=== PATIENT | female | born 1955 | race Caucasian/White ===

== ENCOUNTER → 2022-05-26 | Outpatient (CLI) | payer MEDICARE, OTHER ==
[2022-05-26 10:25] LABS: INR 0.9 (<1.2); Partial Thromboplastin Time 22.7 sec (22.0-30.0)
[2022-05-26 16:21] LABS: HCT 41.1 % (37.2-46.3); HGB 13.6 g/dL (12.0-15.0); MCH 31.9 pg (27.0-32.0); MCHC 33.1 g/dL (32.0-37.0); MCV 96.3 fL (80.0-97.0); Mean Platelet Volume 11.6 fL (9.5-12.2); NRBC Per 100 WBC 0 /100 WBCS (0.0-0.0); Platelet Count 186 X 10*3/uL (140-440); RBC 4.27 X 10*6/uL (4.10-5.20); RDW 13.7 % (11.5-14.5); WBC 6.58 X 10*3/uL (4.50-10.00)
[2022-05-26 16:56] LABS: African American GFR (CKD) 110.9 (60.0-200.0); Albumin 4.3 g/dL (3.8-4.9); Albumin/Globulin Ratio 1.54 (1.60-3.17); BUN/Creat Ratio 26.17 Ratio (12.00-20.00); Blood Urea Nitrogen 15.7 mg/dL (9.0-27.0); Calcium 9.4 mg/dL (8.7-10.3); Globulin 2.8 g/dL (1.6-3.3); Non-African American GFR(CKD) 95.7 (60.0-200.0); Potassium 4.3 mmol/L (3.5-5.5); Total Bilirubin 0.4 mg/dL (0.30-1.20); Total Protein 7.1 g/dL (6.2-8.2)
[2022-05-26 18:27] LABS: Appearance,Urine Clear (Clear); Bilirubin,Urine Negative (Negative); Blood,Urine Negative (Negative); Color,Urine Yellow (Yellow); Ketones,Urine Negative (Negative); Nitrite,Urine Negative (Negative); PH, Urine 7.5 (5.0-8.0); Specific Gravity,Urine 1.006 (1.001-1.030); Urobilinogen,Urine 0.2 (0.2,1.0)
== END | disposition home or self-care (01) ==
LOC: LABWHC1 08:44
PROVIDERS: ATTEND Orthopaedic Surgery
DX: Z01.812 Encounter for preprocedural laboratory examination (principal); M16.11 Unilateral primary osteoarthritis, right hip
CPT/HCPCS: 36415; 80053; 81003; 85027; 85610; 85730; 87070

== ENCOUNTER 2022-06-03 07:02 | Day surgery (SDC) | payer MEDICARE, OTHER ==
[~2022-06-03 07:02] MED LIST: ACETAMINOPHEN TAB 500 MG TAB PO PRN; DEXAMETHASONE SOD PHOSPHATE 4 MG/ML 1 ML VIAL IV ONE; GABAPENTIN 300 MG CAP PO PRN; HYDROmorphone 0.5 MG/0.5 ML SYRINGE IVP PRN; MELOXICAM 7.5 MG TAB PO PRN; ONDANSETRON 4 MG/2 ML VIAL IVP ONE; TRANEXAMIC ACID IN NACL,ISO-OS 1,000 MG in SALINE 1 100ML.BAG IVPB PRN; VANCOMYCIN 1,500 MG in SODIUM CHLORIDE 0.9% 500 ML 500 ML IVPB PRN
[2022-06-03] MEDS: LACTATED RINGERS 1,000 ML IV SCH (07:44)
[2022-06-03] MEDS ORDERED: MIDAZOLAM 2 MG/2 ML VIAL IVP ONE (08:23)
[2022-06-03] MEDS ORDERED: fentaNYL (PF) 50 MCG/ML 2 ML AMP IVP ONE (08:23)
[2022-06-03] MEDS ORDERED: MIDAZOLAM 2 MG/2 ML VIAL ONE (08:55)
[2022-06-03] MEDS ORDERED: PROPOFOL 10 MG/ML 20 ML VIAL IV ONE (08:55)
[2022-06-03] MEDS ORDERED: TRANEXAMIC ACID IN NACL,ISO-OS 1,000 MG/100 ML BAG ONE (08:55)
[2022-06-03] MEDS ORDERED: PHENYLEPHRINE-0.9% NACL SYG 1,000 MCG/10 ML SYRINGE ONE (08:55)
[2022-06-03] MEDS ORDERED: fentaNYL (PF) 50 MCG/ML 2 ML AMP ONE (08:55)
[2022-06-03] MEDS ORDERED: ceFAZolin 1,000 MG VIAL ONE (08:55)
[2022-06-03] MEDS ORDERED: ROPIVACAINE 5 MG/ML 30 ML VIAL ONE (08:55)
[2022-06-03] MEDS ORDERED: DEXAMETHASONE SOD PHOSPHATE 4 MG/ML 1 ML VIAL ONE (08:55)
[2022-06-03] MEDS ORDERED: SODIUM CHLORIDE 0.9% 100 ML BAG ONE (08:55)
[2022-06-03] MEDS ORDERED: SODIUM CHLORIDE 0.9% (PF) 10 ML VIAL ONE (08:55)
[2022-06-03] MEDS ORDERED: SODIUM CHLORIDE 0.9% 100 ML with ceFAZolin 2,000 MG IV ONE ×4 (09:00)
[2022-06-03] MEDS ORDERED: ceFAZolin 1,000 MG in SODIUM CHLORIDE 0.9% 1,000 ML IRRIGATION ONE (09:00)
[2022-06-03] MEDS ORDERED: ROPIVACAINE 5 MG/ML 30 ML VIAL MISCELLANE ONE ×2 (09:04→10:02)
--- NOTE | 2022-06-03 10:14 | P.OP ---
Date of Procedure: 06/03/22 Preoperative Diagnosis: Severe osteoarthritis right hip Postoperative Diagnosis: Severe osteoarthritis right hip Procedure(s) Performed: Right total hip arthroplasty with a direct anterior approach Implants: [employer] Polarstem standard size 5 with a collar [employer] R3, 3 hole hemispherical acetabular shell, 52 mm [employer] Reflection 6.5 mm cancellus screw, 20 mm 2 [employer] R3, XLPE 20 acetabular liner [employer] Oxinium femoral head 36 m, +0 All components were press-fit. The articulation is Oxinium on polyethylene. Anesthesia: spinal Surgeon: Garry Schultz Pharm Tech #1: Stephon Meza Estimated Blood Loss (ml): 200 Pathology: other (Femoral head) Condition: stable Disposition: PACU Indications for Procedure: After failure of conservative treatment we discussed the surgical and nonsurgical treatment options at length. Patient wishes to proceed with a total hip arthroplasty with a direct anterior approach. Complications specific to this procedure were discussed at length, including but not limited to infection, leg length discrepancy, dislocation, nerve injury, and fracture. Covid-19 was also discussed at length with the patient, and they are aware of the current policies and procedures. The patient was given the option of delaying surgery, but they elect to proceed knowing these risks. Patient is aware of all these complications and informed consent was obtained Operative Findings: The operative findings are consistent with severe osteoarthritis of the right hip Description of Procedure: The patient was seen and evaluated in the preoperative area and the consent was reviewed. The operative site was marked with a skin marker. The patient verified the procedure and operative site. A ASHLYN block was placed by anesthesia in the preoperative area. The patient was then brought to the operating room and given preoperative antibiotics intravenously. 1 g of Tranexamic acid was also given intravenously. A spinal anesthetic was administered by the anesthesia department. The patient was then placed on the [place] table with the bony prominences well-padded. The hip area was then prepped with a ChloraPrep solution and draped in the usual sterile fashion. A universal timeout was then performed, which confirmed the patient's name, surgical site, ALLERGIES, and procedure being performed on the consent. Next the incision site was located at 1 cm distal and 4 cm lateral to the anterior superior iliac spine. The skin and subcutaneous tissues were sharply incised. Incision was carefully dissected down to the fascia overlying the tensor fascia edmundo muscle. This fascia was then incised in line with the muscle fibers. Care was taken to stay laterally in order to avoid injuring the lateral femoral cutaneous nerve. Next, using blunt finger dissection, the tensor fascia edmundo muscle was dissected off its investing fascia. The muscle was then carefully retracted laterally with a cobra retractor over the lateral neck of the femur. Next, the circumflex vessels were identified and cauterized using the Aquamantis device. The anterior hip capsule was then exposed. The capsule was then opened and an inverted T fashion. The retractors were then placed intracapsularly. The retractors were maintained intracapsular throughout the procedure. The proximal femur was then visualized. Fluoroscopic x-rays were then taken in order to evaluate the preoperative leg lengths. A small amount of traction was placed on the leg. The femoral neck was then osteotomized at the appropriate level above the lesser trochanter. A small wedge of bone was then removed from the remaining femoral head. Next, using a corkscrew the femoral head was removed from the acetabulum. On gross visual inspection, the femoral head had complete loss of articular cartilage and multiple periarticular osteophytes. The femoral head was then measured. Attention was then turned to the acetabulum. The acetabulum was exposed and any remaining labrum was excised. Sequential reaming of the acetabulum was performed using fluoroscopic guidance until there was a good bed of bleeding cancellus bone. When the appropriate size was reached, a trial was then placed. The position and fit of the trial was checked with fluoroscopy. The trial was then removed. Then, using fluoroscopic guidance, the final implant was impacted at 20 of anteversion and 40 of abduction, and fully seated in the acetabulum. 2 screws were then placed in the acetabulum. Again fluoroscopy was used to check position of the screws. Next, the liner was then impacted, with a 20 elevated liner located in the anterior superior quadrant. Component locking was confirmed. Attention was then directed to the femur. With the aid of the [place] table, the femur was externally rotated to approximately 130, extended, and adducted under the opposite leg. A side hook was then placed under the proximal femur, and the side hook elevator was used to elevate the proximal femur while releasing the capsule. Retractors were then placed. A capsular release was performed, as well as a release of the conjoined tendon, which afforded excellent visualization of the proximal femur. Next, a box osteotome was used to lateralize the proximal femur. A retail project merchandiser was then used to locate the femoral canal. Sequential broaching was then performed with appropriate size which afforded excellent fixation in the proximal femur. A trial was then placed with appropriate head and neck, and the hip was gently reduced with the aid of the [place] table. Fluoroscopy was then used to check position of the components, as well as to evaluate the leg lengths and offset. The leg lengths and offset were measured as closely as possible to ensure stability of the hip. The hip was then gently dislocated and the trials were then removed. Final implants were then impacted and the hip was again reduced. Final fluoroscopic x-rays confirmed that the components were in anatomic position. The leg lengths and offset were measured and were found to coincide with the trial measurements. The hip was also taken through range of motion, and found to be stable. The hip was then copiously irrigated with antibiotic solution with pulsatile lavage. The hip was then irrigated with Irrisept solution. The soft tissues were then injected with a ropivacaine solution. A second dose of 1 g of Tranexamic acid was also given intravenously. The fascia was then closed with 2-0 strata fix suture. The subcutaneous tissue was closed with 3-0 Vicryl. The subcuticular tissue was closed with 3-0 strata fix suture. The skin was then closed with Exofin skin glue. After the glue and dried, and Optifoam silver impregnated dressing was applied. The patient was then transferred to the recovery room in stable condition. The print shop assistant WILLIE Neil was required due to the complexity of surgery, and the need for skilled surgical services manager for positioning, draping, exposure, retraction, and closure of the wound.
[2022-06-03] MEDS ORDERED: hydrOXYzine pamoate 25 MG CAP PO PRN (11:01)
[2022-06-03] MEDS ORDERED: TEMAZEPAM 15 MG CAP PO PRN (11:01)
[2022-06-03] MEDS ORDERED: NALOXONE 0.4 MG/ML 1 ML VIAL IV PRN (11:01)
[2022-06-03] MEDS ORDERED: ONDANSETRON 4 MG/2 ML VIAL IVP PRN (11:01)
[2022-06-03] MEDS ORDERED: MAGNESIUM HYDROXIDE 2,400 MG/10 ML CUP PO PRN (11:01)
[2022-06-03] MEDS ORDERED: HYDROmorphone 0.5 MG/0.5 ML SYRINGE IVP PRN ×3 (11:01)
--- NOTE | 2022-06-03 11:12 | XR ---
EXAMINATION TYPE: XR Hip Limited RT DATE OF EXAM: 06/03/2022 CLINICAL HISTORY: Postoperative evaluation TECHNIQUE: Single portable view of the right hip was submitted. FINDINGS: Noted are changes of total hip arthroplasty with femoral and acetabular components appearin g well seated. Alignment is anatomic. Postsurgical soft tissue changes are evident. IMPRESSION: Satisfactory postoperative alignment
--- NOTE | 2022-06-03 11:37 | XR ---
EXAMINATION TYPE: XR Hip Limited RT, FL guidance operating room DATE OF EXAM: 06/03/2022 CLINICAL HISTORY: Postoperative evaluation TECHNIQUE: Single portable view of the right hip was submitted. FINDINGS: Noted are changes of total hip arthroplasty with femoral and acetabular components appearin g well seated. Alignment is anatomic. Postsurgical soft tissue changes are evident. IMPRESSION: Satisfactory postoperative alignment
[2022-06-03] MEDS ORDERED: MULTIVITAMINS, THERA 1 EACH TAB PO SCH (12:00)
--- NOTE | 2022-06-03 12:42 | P.ANPRN ---
Procedure Note - Anesthesia - Nerve Block Performed Right Yasir Single Time Out Performed: Yes (0822) Date of Procedure: 06/03/22 Location of Patient: PreOp Indication: Acute Post-Operative Pain, Dx/Pain Location (rt hip), Requested by Surgeon Specifically requested for management of pain by DrDenys: Garry Schultz Sedation Type: Sedate with meaningful contact maintained Position: Supine Catheter: None Needle Types: Pajunk Needle Gauge: 21 Ultrasound used to visualize needle placement: Yes Ultrasound used to observe medication spread: Yes Injectate: 0.5% Ropivacaine (see comment for volume) (20 cc + 10 cc of saine + 4mg of decadron) Blood Aspirated: No Pain Paresthesia on Injection Noted: No Resistance on Injection: Normal Image Stored and Saved: Yes Events: Uneventful and Well Tolerated
[2022-06-03] MEDS ORDERED: SODIUM CHLORIDE 0.9% 1,000 ML IV ONE (14:03)
[2022-06-03] MEDS: HYDROcodone/APAP 7.5-325MG 1 EACH TAB PO PRN ×2 (15:36→21:28)
[2022-06-03] MEDS: SODIUM CHLORIDE 0.9% 1,000 ML IV SCH (16:52)
[2022-06-03 19:47] VITALS: RESP 16
[2022-06-03] MEDS ORDERED: VANCOMYCIN 1,500 MG in SODIUM CHLORIDE 0.9% 500 ML 500 ML IVPB ONE (20:00)
[2022-06-03] MEDS ORDERED: SENNOSIDES-DOCUSATE SODIUM 1 EACH TAB PO SCH (21:00)
[2022-06-03] MEDS: ASPIRIN 325 MG TAB PO SCH (21:28)
--- NOTE | 2022-06-04 00:04 | CONS ---
CONSULTATION REASON FOR CONSULTATION: Advice regarding DJD and other medical issues requested by Orthopedic Surgery. HISTORY OF PRESENT ILLNESS: This is a 67-year-old woman with a past medical history of DJD, underwent right total hip joint arthroplasty. There is no history of any fever, rigors, or chills at this time. The patient has some minimal bradycardia, blood pressure is well maintained. PAST MEDICAL HISTORY: DJD, previous history of smoking. Rest of the history and rest of the chart are noted. MEDICATIONS: Home medications are turmeric root, and rest of the medication and doses are noted. ALLERGIES: None. FAMILY HISTORY: No history of heart disease in the family. SOCIAL HISTORY: Previous history of smoking. REVIEW OF SYSTEMS: A 14-point review of systems is negative except as mentioned earlier. PHYSICAL EXAMINATION: VITAL SIGNS: Pulse is 55, blood pressure ntd, respirations 16. HEENT: Conjunctivae normal. NECK: No jugular venous distention. CARDIOVASCULAR: S1, S2 muffled. RESPIRATIONS: Diminished at the bases. No rhonchi, no crackles. ABDOMEN: Soft, obese, nontender. LEGS: Status post right hip arthroplasty. NERVOUS SYSTEM: No focal deficits. SKIN: No ulcer, rash, bleeding. JOINTS: No active deforming arthropathy. LABORATORY DATA: The preop labs are noted. ASSESSMENT: 1. Status post right total hip joint arthroplasty. 2. Bradycardia. 3. Degenerative joint disease. 4. History of nicotine dependence. 5. BMI 35.3. RECOMMENDATIONS: This is a 67-year-old woman who presented with multiple medical issues. At this time, I recommend to continue resume the home medications. DVT prophylaxis. Incentive spirometry. I would also recommend EKG. Monitor the heart rate. Further recommendations to follow. MMODL / IJN: [id number] / DENNIS
[2022-06-04] MEDS: SODIUM CHLORIDE 0.9% 1,000 ML IV SCH (04:48)
[2022-06-04] MEDS: HYDROcodone/APAP 7.5-325MG 1 EACH TAB PO PRN (07:01)
[2022-06-04 07:21] VITALS: BP 148/89; PULSE 63; TEMP 98.4
[2022-06-04] MEDS: LACTATED RINGERS 1,000 ML IV SCH (07:22)
[2022-06-04] MEDS: ASPIRIN 325 MG TAB PO SCH (08:33)
--- NOTE | 2022-06-04 08:56 | P.DS ---
Providers Expected date of discharge: 06/04/22 Attending physician: Garry Schultz Consults: 06/03/22 11:01 Consult Physician Routine Consulting Provider: Wil Santillan Consult Reason/Comments: Postoperative medical management Do you want consulting provider notified?: Yes Primary care physician: Marquis Ford Kut - Discharge Diagnosis(es) (1) Primary localized osteoarthritis of right hip Current Visit: Yes Status: Acute (2) Status post total replacement of right hip Current Visit: Yes Status: Acute Hospital Course: This is a 67-year-old female with history of degenerative arthritis of the right hip. The patient has failed outpatient conservative treatment and presents to discuss surgical options. After discussion and consideration the patient elects to proceed with total right hip arthroplasty with direct anterior approach. The patient is evaluated preoperatively by the primary care physician and cleared for surgery. The patient is admitted to [facility] on 06/03/2022 for total right hip arthroplasty was direct anterior approach. The procedure is performed without complication or sequelae. The patient is doing well postoperatively. The patient may be discharged to home today in good condition. Please see med rec for accurate list of home medications. Patient Condition at Discharge: Good Plan - Discharge Summary Discharge Rx Participant: Yes New Discharge Prescriptions: New Aspirin 325 mg PO BID #60 tab Sennosides-Docusate Sodium [Senokot-S] 1 tab PO BID PRN #60 tablet PRN Reason: Constipation Ondansetron [Zofran] 4 mg PO Q6HR PRN #30 tab PRN Reason: Nausea HYDROcodone/APAP 7.5-325MG [[place] 7.5-325] 1 - 2 each PO Q6HR PRN #56 tab PRN Reason: Pain No Action Turmeric Root Extract [Turmeric] 500 mg PO DAILY Magnesium 250 mg PO DAILY Cholecalciferol [Vitamin D3 (25 Mcg = 1000 Iu)] 25 mcg PO DAILY Multivitamins, Thera [Multivitamin (formulary)] 1 tab PO DAILY Discharge Medication List Cholecalciferol [Vitamin D3 (25 Mcg = 1000 Iu)] 25 mcg PO DAILY 05/28/22 [History] Magnesium 250 mg PO DAILY 05/28/22 [History] Multivitamins, Thera [Multivitamin (formulary)] 1 tab PO DAILY 05/28/22 [History] Turmeric Root Extract [Turmeric] 500 mg PO DAILY 05/28/22 [History] Aspirin 325 mg PO BID #60 tab 06/03/22 [Rx] HYDROcodone/APAP 7.5-325MG [[place] 7.5-325] 1 - 2 each PO Q6HR PRN #56 tab 06/03/22 [Rx] Ondansetron [Zofran] 4 mg PO Q6HR PRN #30 tab 06/03/22 [Rx] Sennosides-Docusate Sodium [Senokot-S] 1 tab PO BID PRN #60 tablet 06/03/22 [Rx] Follow up Appointment(s)/Referral(s): [facility] [NON-STAFF] - 1-2 Days Garry Schultz DO [Doctor of Osteopathic Medicine] - 2 Weeks (Patient may follow-up with Natasha Go PA-C or Dr. Garry Schultz at [facility] in 2-3 weeks following discharge. ) Activity/Diet/Wound Care/Special Instructions: 1. Keep Optifoam dressing over the right hip intact over the next 7 days 2. Patient may shower with dressing intact over the surgical site of the right hip 3. Patient may shower without a dressing intact after 7 days his incision site remains clean and dry 4. Weight-bear as tolerated right lower extremity with a walker 5. Take medications as prescribed 6. Any questions or concerns patient may contact [facility] at [phone] Discharge Disposition: HOME SELF-CARE
[2022-06-04] MEDS ORDERED: MAGNESIUM OXIDE 400 MG TAB PO SCH (09:00)
[2022-06-04] MEDS ORDERED: CHOLECALCIFEROL 25 MCG (1000 IU) TABLET PO SCH (09:00)
[2022-06-04 11:17] LABS: Basophils # (A) 0.01 X 10*3/uL (0.00-0.10); Basophils % (A) 0.1 %; Eosinophils # (A) 0.03 X 10*3/uL (0.04-0.35); Eosinophils % (A) 0.3 %; HCT 36.2 % (37.2-46.3); HGB 11.7 g/dL (12.0-15.0); Immature Grans, Automated 0.3 %; Lymphocytes # (A) 2.25 X 10*3/uL (0.90-5.00); Lymphocytes % (A) 22.5 %; MCH 31.5 pg (27.0-32.0); MCHC 32.3 g/dL (32.0-37.0); MCV 97.3 fL (80.0-97.0); Mean Platelet Volume 12.2 fL (9.5-12.2); Monocytes # (A) 1.19 X 10*3/uL (0.20-1.00); Monocytes % (A) 11.9 %; NRBC Per 100 WBC 0 /100 WBCS (0.0-0.0); Neutrophils # (A) 6.48 X 10*3/uL (1.80-7.70); Neutrophils % (A) 64.9 %; Platelet Count 165 X 10*3/uL (140-440); RBC 3.72 X 10*6/uL (4.10-5.20); RDW 13.4 % (11.5-14.5); WBC 9.99 X 10*3/uL (4.50-10.00)
--- NOTE | 2022-06-05 04:14 | PN ---
PROGRESS NOTE DATE OF SERVICE: 06/04/2022 SUBJECTIVE: This is a 67-year-old woman, who was admitted after right total hip joint arthroplasty, improving significantly. No chest pain. No palpitations. No fever. OBJECTIVE: VITAL SIGNS: Pulse is 63, blood pressure 148/89, respirations 16. CHEST: Clear to auscultation. CARDIOVASCULAR: S1, S2 muffled. ABDOMEN: Soft. LEGS: Status post surgery. LABORATORY DATA: Not available. ASSESSMENT: 1. Status post right total hip joint arthroplasty. 2. Bradycardia, improved. 3. Degenerative joint disease. 4. History of nicotine dependence. RECOMMENDATIONS: Recommend to continue current medications, continue symptomatic treatment. EKG showed sinus mechanism. Recommend close followup in the outpatient setting with primary physician and continue the rest of medications. The rest of the recommendations per Orthopedic Surgery. Further recommendations to follow. MMODL / IJN: [id number] /
== END 2022-06-04 13:44 | disposition home or self-care (01) ==
LOC: OR 07:02 → 4SSUR 13:56 → OR 06-04 13:44
PROVIDERS: ATTEND Orthopaedic Surgery
DX: M16.11 Unilateral primary osteoarthritis, right hip (principal); M25.751 Osteophyte, right hip; M11.261 Other chondrocalcinosis, right knee; Z98.890 Other specified postprocedural states; M11.262 Other chondrocalcinosis, left knee; G89.18 Other acute postprocedural pain; Z82.49 Family history of ischemic heart disease and other diseases of the circulatory system; Z83.3 Family history of diabetes mellitus; Z86.59 Personal history of other mental and behavioral disorders; Z87.891 Personal history of nicotine dependence; Z79.899 Other long term (current) drug therapy
CPT/HCPCS: 93005; 97161; 64447; 86900; 86901; 85025; 86850; 88300; 73501; 27130; C1776; J2250; J3370; J1100; J2405; J0690; J3010; J2795; J2370; J2704; J1170